=== PATIENT | female | born 1985 | race Caucasian/White ===

== ENCOUNTER 2017-02-04 15:54 | Emergency (ER) | payer BC, OTHER ==
[2017-02-04 16:01] VITALS: BP 143/37; PULSE 95; TEMP 98.4; BMI 20.3
[2017-02-04 17:26] LABS: BASOPHIL 1.2 % (0-2.0); EOSINOPHIL 2.3 % (0-4.5); MCH 30.4 pg (25.7-33.7); MCHC 33.6 g/dl (32.0-36.0); MEAN CELL VOLUME 90.4 fl (80-96); MEAN PLT VOLUME 6.8 fl (7.5-11.1); NEUTROPHILS 71.8 % (42.8-82.8); PLATELET COUNT 387 K/MM3 (134-434); RDW 13.6 % (11.6-15.6); WHITE BLOOD COUNT 13.4 K/mm3 (4.0-10.0)
--- NOTE | 2017-02-04 17:38 | PDOC ---
History of Present Illness - General Chief Complaint: Vaginal Sxs Stated Complaint: VAGINAL BLEEDING (7 WKS ) Time Seen by Provider: 02/04/17 16:02 History Source: Patient Exam Limitations: No Limitations - History of Present Illness Travel History: No Initial Comments: 02/04/17 17:08 32-year-old female presents to the ED with complaints of vaginal spotting since this morning. Patient states that approximately 5 weeks 6 days and states had an ultrasound which showed a gestational sac last week since she was unsure of her gestational age due to irregular menses last month. patient describes the spotting is a brownish discharge with had one small clot. Patient states has had no recent sexual intercourse, recent injury, or urinary complaints. Timing/Duration: reports: constant Aggravating Factors: improves with: None Alleviating Factors: improves with: None Past History - Travel Traveled outside of the country in the last 30 days: No Close contact w/someone who was outside of country & ill: No - Past Medical History Allergies/Adverse Reactions: Allergies Allergy/AdvReac Type Severity Reaction Status Date / Time Sulfa (Sulfonamide Allergy Intermediate Rash Verified 02/04/17 15:56 Antibiotics) Penicillins Allergy Verified 02/04/17 15:56 Home Medications: Ambulatory Orders Nitrofurantoin Monohyd/M-Cryst [Macrobid -] 100 mg PO BID #14 capsule 02/04/17 Vit/Iron Fumarate/FA [ Tablet] 1 each PO DAILY 02/04/17 Other medical history: ADHD - Reproductive History Is Patient Now?: Yes (#): 1 Para: 0 - Psycho/Social/Smoking Cessation Hx Suicidal Ideation: No Smoking History: Former smoker Have you smoked in the past 12 months: Yes Information on smoking cessation initiated: No Hx Alcohol Use: No Drug/Substance Use Hx: No Patient Lives Alone: No Lives with/in: spouse/SO Review of Systems - Review of Systems Able to Perform ROS?: Yes Constitutional: No: Symptoms Reported ABD/GI: No: Symptoms Reported : Yes: Discharge Musculoskeletal: No: Symptoms Reported Integumentary: No: Symptoms Reported Neurological: No: Symptoms reported *Physical Exam - Vital Signs Last Vital Signs Temp Pulse Resp BP Pulse Ox 98.4 F 95 H 19 143/37 100 02/04/17 15:56 02/04/17 15:56 02/04/17 15:56 02/04/17 15:56 02/04/17 15:56 - Physical Exam General Appearance: Yes: Nourished, Appropriately Dressed. No: Apparent Distress Respiratory/Chest: positive: Lungs Clear, Normal Breath Sounds. negative: Respiratory Distress, Accessory Muscle Use Cardiovascular: positive: Regular Rhythm, Regular Rate. negative: Murmur Female Pelvic Exam: positive: cervical os closed, vaginal bleeding (scant brownish). negative: CMT, adnexal tenderness Gastrointestinal/Abdominal: positive: Soft. negative: Tenderness Integumentary: positive: Normal Color, Warm, Moist Neurologic: positive: Motor Strength 5/5 (ambulatory) ED Treatment Course - LABORATORY CBC & Chemistry Diagram: 02/04/17 17:15 02/04/17 17:15 Medical Decision Making - Medical Decision Making 02/04/17 17:04 Patient currently 5-6 weeks complaining of vaginal spotting. Patient on exam had scant brownish discharge without other acute findings. Patient ordered for CBC, comp, beta hCG, urine, type and screen and ultrasound. 02/04/17 18:17 Laboratory Tests 02/04/17 02/04/17 02/04/17 17:09 17:15 17:15 WBC 13.4 H Hgb 13.2 Hct 39.2 Plt Count 387 Sodium 137 Potassium 3.8 Chloride 104 Carbon Dioxide 26 Anion Gap 7 L BUN 17 Creatinine 0.6 Random Glucose 92 Calcium 9.2 AST 25 ALT 69 Alkaline Phosphatase 48 Beta HCG, Quant Urine Blood 2+ H Urine Nitrite Negative Ur Leukocyte Esterase Negative Urine WBC <1 02/04/17 17:15 WBC Hgb Hct Plt Count Sodium Potassium Chloride Carbon Dioxide Anion Gap BUN Creatinine Random Glucose Calcium AST ALT Alkaline Phosphatase Beta HCG, Quant 2686.9 Urine Blood Urine Nitrite Ur Leukocyte Esterase Urine WBC Pt ordered for tv preg us 02/05/17 06:14 Pt in route to ultrasound *DC/Admit/Observation/Transfer Diagnosis at time of Disposition: Vaginal discharge - Discharge Dispostion Disposition: HOME - Prescriptions Prescriptions: Nitrofurantoin Monohyd/M-Cryst [Macrobid -] 100 mg PO BID #14 capsule - Referrals Referrals: STAFF,NOT ON [Primary Care Provider] -
[2017-02-04 17:45] LABS: URINE APPEARANCE CLEAR; URINE BILIRUBIN NEGATIVE (NEGATIVE); URINE BLOOD 2+ (NEGATIVE); URINE COLOR LTYELLOW; URINE GLUCOSE (UA) NEGATIVE (NEGATIVE); URINE KETONE NEGATIVE (NEGATIVE); URINE LEUK ESTERASE NEGATIVE (NEGATIVE); URINE NITRITE NEGATIVE (NEGATIVE); URINE PROTEIN NEGATIVE (NEGATIVE); URINE UROBILINOGEN NEGATIVE mg/dL (0.2-1.0)
[2017-02-04 17:54] LABS: URINE RBC 1 /hpf (0-3); URINE WBC <1 /hpf (3-5)
[2017-02-04 18:00] LABS: ALK PHOS 48 U/L (45-117); ANION GAP 7 (8-16); BILIRUBIN,TOTAL 0.3 mg/dL (0.2-1.0); CALCIUM 9.2 mg/dL (8.5-10.1); CO2 26 mmol/L (21-32); CREATININE 0.6 mg/dL (0.55-1.02); GLUCOSE,RANDOM 92 mg/dL (74-106); SGOT/AST 25 U/L (15-37); SGPT/ALT 69 U/L (12-78); TOT PROT 7.3 g/dl (6.4-8.2)
== END 2017-02-04 20:20 | disposition home or self-care (01) ==
LOC: JER 15:54
DX: O26.891 Other specified pregnancy related conditions, first trimester (principal); N89.8 Other specified noninflammatory disorders of vagina; O34.81 Maternal care for other abnormalities of pelvic organs, first trimester; N83.291 Other ovarian cyst, right side; Z3A.01 Less than 8 weeks gestation of pregnancy
CPT/HCPCS: 36415; 76817-TC; 80053; 81003; 81015; 84702; 85025; 86850; 86900; 86901; 99282-25